=== PATIENT | female | born 1945 | race Caucasian/White ===

== ENCOUNTER → 2017-02-10 | Outpatient (CLI) | payer MEDICARE, BC ==
[~2017-02-10] MED LIST: ASPIRIN325 MG PO; COUMADIN2.5 MG PO; FEOSOL325 MG PO; KLONOPIN DPS0.5 MG PO; KLONOPIN0.5 MG PO; MIRAPEX0.5 MG PO; NYSTATIN1 EAC1 TP; PRAVACHOL80 MG PO; PROZAC DPS20 MG PO; SPORTS CREAM85 GM TP; SYNTHROID DP0.075 MG PO; SYNTHROID75 MCG PO; TYLENOL PO; VITAMIN C250 MG PO; VOLTAREN 1% GEL TP; ZESTRIL DPS2.5 MG PO; ZESTRIL2.5 MG PO
== END | disposition home or self-care (01) ==
LOC: RAD.S 07:27
DX: E21.3 Hyperparathyroidism, unspecified (principal); E83.52 Hypercalcemia